=== PATIENT | male | born 1970 | race Two or more races ===

== ENCOUNTER 2017-12-29 13:58 | Emergency (ER) | payer SELFPAY ==
[~2017-12-29] VITALS: Ht 180.3 cm; Wt 90.7 kg
[~2017-12-29 13:58] MED LIST: NKM
[2017-12-29 14:06] VITALS: BP 127/70
--- NOTE | 2017-12-29 14:13 | Emergency Room Report ---
History of Present Illness General Chief Complaint: Male Urogenital Problems Present Illness HPI 47 yo male patient presents to ER complaining of frequency and right kidney pain. Reports frequency for 2 days. Reports drinking lots of water for the past 2 days. Reports kidney pain for 1 week. Reports hx of similar kidney pain symptoms in the past, reports resolved spontaneously. Denies pain with ROM. Denies hx of kidney stones. Denies hx of DM. Denies hx of prostrate problems. Denies fever, chest pain, SOB. Denies nausea, vomiting, diarrhea, dysuria, hematuria. Denies problems with starting or stopping stream. Reports one sexual partner, girlfriend in ER with patient. Girlfriend reports she is asx. Denies penile discharge, testicular pain. Allergies: Coded Allergies: No Known Allergies (Unverified , 11/12/12) Patient History Past Medical History: see triage record Reviewed Nursing Documentation: PMH: Agreed; PSxH: Agreed Review of Systems All Other Systems: negative except mentioned in HPI Physical Exam Vital Signs Date Time Temp Pulse Resp B/P (MAP) Pulse Ox O2 Delivery O2 Flow Rate FiO2 12/29/17 14:00 98.2 79 18 127/70 95 Room Air 98.2 Sp02 EP Interpretation: reviewed, normal General Appearance: well appearing, no apparent distress, alert, GCS 15, non- toxic Head: normocephalic, atraumatic Eyes: bilateral eye normal inspection, bilateral eye PERRL ENT: hearing grossly normal, normal pharynx, no angioedema, normal voice, uvula midline, moist mucus membranes Neck: full range of motion Respiratory: lungs clear, normal breath sounds, no rhonchi, no respiratory distress, no accessory muscle use, no wheezing, speaking full sentences Cardiovascular #1: regular rate, rhythm, no edema Gastrointestinal: non tender, soft, no mass, non-distended, no guarding, no rebound, other - negative Rovsing, negative [place] Genitourinary: no CVA tenderness Neurologic: alert, oriented x3, responsive, motor strength/tone normal, sensory intact Psychiatric: mood/affect normal Skin: no rash Medical Decision Making PA Attestation Dr. Chang is my supervising Physician whom patient management has been discussed with. Diagnostic Impression: Primary Impression: Frequency of urination Additional Impression: Kidney pain ER Course Pt presents to ED c/o urinary symptoms and kidney pain. DDX considered but are not limited to cystitis, pyelonephritis, STI, kidney stones. Low suspicion for kidney stones, patient sitting comfortably, talking in complete sentences, smiling, nontoxic appearing. Due to benign physical exam and history of symptoms intermittently, will not order CT at this time. VITAL SIGNS are WNL, patient is afebrile. Ordered UA ER COURSE UA results show no nitrites, no hematuria, do not indicate UTI, will not treat with abx at this time. Low suspicion for acute kidney injury. Discussed results with patient. Ordered renal US to rule out underlying pathology. No kidney stones, no hydronephrosis. Bladder wall thickening, nonspecific, may be related to incomplete bladder distention. Does not require acute intervention in ER. Denies hx of STI. Informed patient if concern for STI, report to clinic for treatment and testing. Denies concern for STI currently. Informed patient to return to ER immediately for any new or worsening of symptoms. Followup with primary care provider for evaluation of kidney pain and testing for diabetes. Request referral. Patient is resting comfortably in chair, nontoxic appearing, in no acute distress. DISCHARGE -Rx provided for Tylenol for pain Patient is stable for discharge. Patient resting comfortably, in no acute distress, nontoxic appearing, talking without difficulty. Will provide with patient care instructions and any necessary prescriptions. Patient understands and agrees to treatment plan. Patient encouraged to drink plenty of fluids. Patient to take medication as instructed. Care plan and follow-up instructions provided. Patient questions asked and answered. Reports understanding and agreement to treatment plan. Patient instructed to follow-up with primary care provider in 3 - 5 days. ER precautions given. Patient instructed to return to ER immediately for any new or worsening of symptoms. Including but not limited to fever, abdominal pain , intractable vomiting. Labs Test 12/29/17 14:06 Urine Color Yellow Urine Appearance Clear Urine pH 5 (4.5-8.0) Urine Specific Steen 1.025 (1.005-1.035) Urine Protein Negative (NEGATIVE) Urine Glucose (UA) Negative (NEGATIVE) Urine Ketones 1+ (NEGATIVE) Urine Occult Blood Negative (NEGATIVE) Urine Nitrite Negative (NEGATIVE) Urine Bilirubin Negative (NEGATIVE) Urine Urobilinogen 1 MG/DL (0.0-1.0) Urine Leukocyte Esterase 1+ (NEGATIVE) Urine RBC 0 /HPF (0 - 0) Urine WBC 0-2 /HPF (0 - 0) Urine Squamous Epithelial Cells Occasional /LPF Urine Bacteria Occasional /HPF (NONE) Urine Mucus Moderate /LPF (NONE/OCC) CT/MRI/US Diagnostic Results CT/MRI/US Diagnostic Results : Imaging Test Ordered: Renal US Impression VIA STATRAD Kidneys are normal size and echotexture bilaterally. No evidence of hydronephrosis. No renal calculi are evident. Urinary bladder is incompletely distended with apparent bladder wall thickening most prominent along posterior bladder wall. This is nonspecific and may again be related to incomplete bladder distention. Prevoid ladder volume is 121 cc with postvoid bladder volume of 10.3 cc. Last Vital Signs Date Time Temp Pulse Resp B/P (MAP) Pulse Ox O2 Delivery O2 Flow Rate FiO2 12/29/17 14:06 98.2 79 18 127/70 95 Room Air 98.2 Disposition: HOME, SELF-CARE Condition: Stable Scripts Acetaminophen* (TYLENOL EXTRA STRENGTH*) 500 Mg Tablet 500 MG ORAL Q8H PRN for Prn Headache/Temp > 101, #30 TAB 0 Refills Prov: Reji Treviño 12/29/17 Patient Instructions: Kidney Stones, [id number], Overactive Bladder, Adult, Urinary Frequency Additional Instructions: Followup with primary care provider in 2-3 days for further treatment and referral. Discuss need for imaging and referral to specialist at that time. Discuss evaluation for diabetes. Take medications as directed. Patient questions asked and answered. ER precautions given, patient instructed to return to ER immediately for any new or worsening of symptoms including but not limited to worsening of pain symptoms, blood in stool or urine, pain with urination, fever, intractable vomiting. Reji Treviño Dec 29, 2017 14:13
[2017-12-29 14:25] LABS: APPEARANCE,URINE CLEAR; BILIRUBIN, URINE NEGATIVE (NEGATIVE); GLUCOSE, URINE (UA) NEGATIVE (NEGATIVE); KETONES,URINE 1+ (NEGATIVE); LEUKOCYTE ESTERASE ,URINE 1+ (NEGATIVE); NITRITE,URINE NEGATIVE (NEGATIVE); PH,URINE 5 (4.5-8.0); PROTEIN,URINE NEGATIVE (NEGATIVE); UROBILINOGEN,URINE 1 MG/DL (0.0-1.0)
[2017-12-29 14:27] LABS: COLOR,URINE YELLOW
[2017-12-29] MEDS ORDERED: Acetaminophen 500mg (ES) tab ORAL ONE (14:30)
[2017-12-29] MEDS ORDERED: TYLENOL EXTRA500 MG ORAL (15:09)
[2017-12-29 17:06] VITALS: BP 121/68
--- NOTE | 2017-12-30 12:06 | Diagnostic Imaging Report ---
Indication: Bilateral flank pain Technique: Grayscale and duplex Doppler imaging of the kidneys performed. Comparison: None Findings: The size, contour, and echogenicity of both kidneys are within normal limits. There is no hydronephrosis. The IVC is unremarkable. The bladder is relatively nondistended with a slightly prominent wall. Correlate clinically. Liver is echogenic. IMPRESSION: Questionable thickening of the wall of the urinary bladder. Correlate clinically. Fatty liver
== END 2017-12-29 17:07 | disposition home or self-care (01) ==
LOC: EMR 14:30
DX: R35.0 Frequency of micturition (principal); N23 Unspecified renal colic
CPT/HCPCS: 76770; 81003; 99284

== ENCOUNTER 2018-02-07 17:17 | Emergency (ER) | payer SELFPAY ==
[~2018-02-07] VITALS: Ht 180.3 cm; Wt 102.1 kg
[~2018-02-07 17:17] MED LIST changes: +TYLENOL EXTRA500 MG ORAL
[2018-02-07 17:34] VITALS: BP 132/85
[2018-02-07] MEDS ORDERED: IBUPROFEN600 MG ORAL (18:00)
[2018-02-07] MEDS ORDERED: AMOXICILLIN500 MG ORAL (18:00)
[2018-02-07 18:10] VITALS: BP 132/85
--- NOTE | 2018-02-08 22:17 | Emergency Room Report ---
History of Present Illness General Chief Complaint: General Complaint Source: Patient Present Illness HPI 47-year-old male presents ED for evaluation. Patient complaining of pain to his neck. Noticed on and off for the last month. Also notes cough and congestive symptoms with sore throat. Pain is sharp, 5 out of 10, nonradiating. Denies fevers or chills. Denies neck stiffness. Denies difficulty swallowing or breathing. Denies earache. No other aggravating relieving factors. Denies any other associated symptoms Allergies: Coded Allergies: No Known Allergies (Unverified , 11/12/12) Patient History Past Medical History: none Past Surgical History: none Pertinent Family History: none Social History: Denies: smoking, alcohol use, drug use Immunizations: UTD Reviewed Nursing Documentation: PMH: Agreed; PSxH: Agreed Nursing Documentation-PMH Past Medical History: No Stated History Review of Systems All Other Systems: negative except mentioned in HPI Physical Exam Vital Signs Date Time Temp Pulse Resp B/P (MAP) Pulse Ox O2 Delivery O2 Flow Rate FiO2 02/07/18 17:23 98.1 92 16 132/85 95 Room Air 98.1 Sp02 EP Interpretation: reviewed, normal General Appearance: no apparent distress, alert, GCS 15, non-toxic Head: normocephalic, atraumatic Eyes: bilateral eye normal inspection, bilateral eye PERRL ENT: hearing grossly normal, no angioedema, normal voice, pharyngeal erythema Neck: full range of motion, supple/symm/no masses Respiratory: chest non-tender, lungs clear, normal breath sounds, speaking full sentences Cardiovascular #1: regular rate, rhythm, no edema Cardiovascular #2: 2+ carotid (R), 2+ carotid (L), 2+ radial (R), 2+ radial (L) , 2+ dorsalis pedis (R), 2+ dorsalis pedis (L) Gastrointestinal: normal bowel sounds, non tender, soft, non-distended, no guarding, no rebound Rectal: deferred Genitourinary: normal inspection, no CVA tenderness Musculoskeletal: back normal, gait/station normal, normal range of motion, non- tender Neurologic: alert, oriented x3, responsive, motor strength/tone normal, sensory intact, speech normal Psychiatric: judgement/insight normal, memory normal, mood/affect normal, no suicidal/homicidal ideation Reflexes: 3+ bicep (R), 3+ bicep (L), 3+ tricep (R), 3+ tricep (L), 3+ knee (R) , 3+ knee (L) Skin: normal color, no rash, warm/dry, well hydrated Lymphatic: adenopathy - cervical Medical Decision Making Diagnostic Impression: Primary Impression: Lymphadenopathy ER Course Hospital Course 47-year-old male presents to ED complaining of neck pain, sore throat and cough Differential diagnoses include: URI, pharyngitis, otitis media Clinical course Patient placed on stretcher. After initial history, physical exam reveals a male in no acute distress. Bilateral TM unremarkable. There is pharyngeal erythema w/o tonsillar exudates. there is some noted cervical lymphadenopathy. No evidence of airway compromise. We will treat as lymphadenopathy likely secondary to the pharyngitis. We'll prescribe antibiotics. Recommend close follow-up with PMD Diagnosis - lymphadenopathy Stable and discharged home with prescriptions for amoxicillin. Instructed to followup with PMD. return to ED if symptoms recur or worsen Last Vital Signs Date Time Temp Pulse Resp B/P (MAP) Pulse Ox O2 Delivery O2 Flow Rate FiO2 02/07/18 18:10 98.1 82 16 132/85 95 Room Air 98.1 Status: improved Disposition: HOME, SELF-CARE Condition: Stable Scripts Ibuprofen* (MOTRIN*) 600 Mg Tablet 600 MG ORAL Q8H PRN for For Pain, #30 TAB 0 Refills Prov: Jaxson Wiseman MD 02/07/18 Amoxicillin* (AMOXIL*) 500 Mg Capsule 500 MG ORAL THREE TIMES A DAY for 10 Days, #30 CAP Prov: Jaxson Wiseman MD 02/07/18 Patient Instructions: Lymphadenopathy Jaxson Wiseman MD February 08, 2018 22:17
== END 2018-02-07 18:12 | disposition home or self-care (01) ==
LOC: EMR 17:48
DX: R59.0 Localized enlarged lymph nodes (principal); M54.2 Cervicalgia; R05 Cough
CPT/HCPCS: 99284